=== PATIENT | male | born 1970 | race Caucasian/White ===

== ENCOUNTER → 2024-04-21 10:28 | Outpatient (REF) | payer SELFPAY | LOC: HWRAD 10:28 | PROVIDERS: ATTENDING PHYSICIAN Nurse Practitioner Family; FAMILY PHYSICIAN Internal Medicine | DX: Z86.79 Personal history of other diseases of the circulatory system (principal) | CPT/HCPCS: 75571 ==

== ENCOUNTER → 2024-05-02 14:48 | Outpatient (REF) | payer OTHER, SELFPAY | LOC: RCS 14:48 | PROVIDERS: ATTENDING PHYSICIAN Nurse Practitioner Family; FAMILY PHYSICIAN Internal Medicine | DX: Z00.00 Encounter for general adult medical examination without abnormal findings (principal); Z86.79 Personal history of other diseases of the circulatory system; Z82.41 Family history of sudden cardiac death; Z82.49 Family history of ischemic heart disease and other diseases of the circulatory system | CPT/HCPCS: 93306 ==